=== PATIENT | female | born 1975 | race Two or more races ===

== ENCOUNTER → 2024-10-20 | Outpatient (CLI) | payer MEDICAID, SELFPAY ==
--- NOTE | 2024-10-20 10:15 | XR_ITS ---
Examination: Ultrasound soft tissue neck TECHNIQUE: Grayscale sonographic images soft tissue neck Exam date and time: October 20, 2024 1020 hours INDICATIONS: Difficulty swallowing foods beginning 3 weeks ago. FINDINGS: Multiple lymph nodes in the left neck, the largest laterally R2 0.1 x 0.5 x 0.8 cm and 1.3 x 0.6 x 0.6 cm IMPRESSION: Significant left neck lymphadenopathy Recommend CT soft tissue neck post intravenous contrast follow-up
--- NOTE | 2024-10-20 11:00 | XR_ITS ---
Examination: Breast ultrasound, unilateral, right complete Date and time of exam: October 20, 2024 1024 hours Comparison October 11, 2023 INDICATIONS: Right breast sonogram October 11, 2023 10:00 intramammary lymph node 4 x 5 mm Technique: Real-time tariq scale ultrasonographic imaging performed right breast including all 4 quadrants as well as nipple retroareolar and axillary region. Findings: 10:00 intramammary lymph node 5 x 5 mm Right axillary lymph node 4.3 x 1.7 x 1.9 cm IMPRESSION: BI-RADS Category 3: Probably benign findings Enlarging right axillary lymph node, recommend continued 6 month follow-up right breast axillary sonography
== END | disposition home or self-care (01) ==
LOC: CDIM 10:01
PROVIDERS: Referring Provider Nurse Practitioner Family; Visit Provider Nurse Practitioner Family
DX: R59.0 Localized enlarged lymph nodes (principal)
CPT/HCPCS: 76536; 76641

== ENCOUNTER → 2024-12-15 | Outpatient (CLI) | payer MEDICAID, SELFPAY ==
--- NOTE | 2024-12-15 09:15 | XR_ITS ---
Examination: Diagnostic digital mammography, unilateral, right Computer aided detection 3-D breast Tomosynthesis, unilateral Date and time of exam: 12/15/2024, 8:50 AM Comparisons: mammogram 09/17/2023. Right breast ultrasound 10/20/2024 Indications: Abnormality seen on screening exam from September 17, 2023 Technique: Nonmagnified MLO, CC views of the right breast have been obtained, reconstructed from 3-D Tomosynthesis images. R2 computer aided detection program utilized for evaluation of suspicious masses and/or abnormal calcifications. 3-D Tomosynthesis images obtained. Technologist: Findings: There are scattered areas of fibroglandular density. Stable benign intramammary lymph node upper inner quadrant. No evidence of abnormal masses or suspicious calcifications. Impression: Right breast: BI-RADS category 2: Benign findings Patient is overdue for left screening mammogram. Recommend immediate left screening mammogram.
== END | disposition home or self-care (01) ==
LOC: CDIM 08:42
PROVIDERS: Referring Provider Nurse Practitioner Family; Visit Provider Nurse Practitioner Family
DX: R92.322 Mammographic fibroglandular density, left breast (principal)
CPT/HCPCS: 77061; 77065; G0279